=== PATIENT | female | born 1995 | race Caucasian/White ===

== ENCOUNTER 2018-03-01 11:13 | Emergency (ER) | payer OTHER ==
[2018-03-01 12:43] VITALS: BP 120/78
--- NOTE | 2018-03-01 12:50 | UC ---
Skin Complaint HPI - HPI Summary HPI Summary: 22-year-old woman comes to clinic today with a complaint of a rash on her lower abdomen. Its been there for days and is getting worse. Patient does have a fat roll and it's underneath the fat roll. It itches and is mildly painful. No fevers or chills. She has been trying to keep it dry but it keeps getting moist and reoccurring. She has not tried any medication. - History of Current Complaint Chief Complaint: UCSkin Time Seen by Provider: 03/01/18 12:38 Stated Complaint: SKIN COMPLAINT Hx Last Menstrual Period: 01/10/18 Pain Intensity: 7 - Allergy/Home Medications Allergies/Adverse Reactions: Allergies Allergy/AdvReac Type Severity Reaction Status Date / Time MS Fluoxetine [From Prozac] AdvReac Unknown Verified 10/22/13 14:33 Reaction Details MS Ibuprofen [Ibuprofen] AdvReac Vomiting Verified 10/22/13 14:33 MS Sertraline [From Zoloft] AdvReac See Comment Verified 10/22/13 14:33 Home Medications: Home Medications Amoxicillin 500 mg PO BID 03/01/18 [History Confirmed 03/01/18] Review of Systems Constitutional: Negative Skin: Rash - See history present illness Eyes: Negative ENT: Negative Respiratory: Negative Cardiovascular: Negative Gastrointestinal: Negative Genitourinary: Negative Motor: Negative Neurovascular: Negative Musculoskeletal: Negative Neurological: Negative Psychological: Negative Is Patient Immunocompromised?: No All Other Systems Reviewed And Are Negative: Yes PMH/Surg Hx/FS Hx/Imm Hx Psychological History: Anxiety - Surgical History Surgical History: None - Family History Known Family History: Negative: Hypertension, Diabetes - Social History Alcohol Use: None Substance Use Type: None Smoking Status (MU): Heavy Every Day Tobacco Smoker Type: Cigarettes Amount Used/How Often: 3 cigarettes daily - Immunization History Vaccination Up to Date: Yes Physical Exam Triage Information Reviewed: Yes Appearance: Well-Appearing, No Pain Distress, Well-Nourished Vital Signs: Initial Vital Signs Temp 98.6 F 03/01/18 12:31 Pulse 102 03/01/18 12:31 Resp 24 03/01/18 12:31 BP 120/78 03/01/18 12:31 Pulse Ox 96 03/01/18 12:31 Vital Signs Reviewed: Yes Eye Exam: Normal Eyes: Positive: Conjunctiva Clear Neck exam: Normal Neck: Positive: Supple Respiratory: Positive: No respiratory distress Musculoskeletal Exam: Normal Musculoskeletal: Positive: Strength Intact, ROM Intact Neurological Exam: Normal Neurological: Positive: Alert, Muscle Tone Normal Psychological Exam: Normal Psychological: Positive: Normal Response To Family Skin: Positive: Other - UNDER the role of abdominal fat in the intertrigo area there is an erythematous moist rash with satellite lesions. Course/Dx - Diagnoses Provider Diagnoses: YEAST INTERTRIGO Discharge - Sign-Out/Discharge Documenting (check all that apply): Patient Departure All imaging exams completed and their final reports reviewed: No Studies - Discharge Plan Condition: Stable Disposition: HOME Prescriptions: Nystatin TOP POWDER* 1 applic TOPICAL TID #1 btl Patient Education Materials: Skin Yeast Infection (ED) Referrals: [facility] [Outside] Additional Instructions: FOLLOW UP WITH YOUR DOCTOR. GET RECHECKED FOR ANY WORSENING OF YOUR CONDITION OR QUESTIONS OR CONCERNS. - Billing Disposition and Condition Condition: STABLE Disposition: Home
== END 2018-03-01 13:02 | disposition home or self-care (01) ==
LOC: UCCORT 11:13
DX: L30.4 Erythema intertrigo (principal); F17.210 Nicotine dependence, cigarettes, uncomplicated; Z79.2 Long term (current) use of antibiotics; Z88.8 Allergy status to other drugs, medicaments and biological substances
CPT/HCPCS: 99212; G0463